=== PATIENT | female | born 1955 | race Caucasian/White ===

== ENCOUNTER 2023-02-02 17:41 | Inpatient (IN) | payer OTHER ==
--- OUTSIDE RECORDS SUMMARY | 2023-02-02 17:43 | XMS REPORT | Continuity of Care Document ---
:1955 Author Organization [facility] t Address [address] [facility] [address] [place] [address] Care Team Providers Name Role Phone Pcp, Patient Does Not Have A Primary Care Physician +[id number] Oralia Gallardo MD Attending Clinician Kavita Mckeon MD Attending Clinician MICAH PATEL Attending Clinician Unavailable Micah Patel MD Attending Clinician Doctor Unassigned, [place] Attending Clinician Unavailable ORALIA GALLARDO Admitting Clinician Unavailable MICAH PATEL Admitting Clinician Unavailable Payers Payer Name Policy Type Policy Number Effective Date Expiration Date S vy MEDICARE PART A \T\ [id number] 2022 B 00:00:00 COMMERCIAL [id number] 2022 NON-CONTRACT 00:00:00 GENERIC Problems This patient has no known problems. Allergies, Adverse Reactions, Alerts Allergy Allergy Status Severity Reaction(s) Onset Inactive Treating Comm ents Source Name Type Date Date Clinician Marcos Armas Active Itching Method i ty to 07 [facility] adverse 00:00: Hospita reaction 00 l s to drug NO KNOWN Drug Active Univers ALLERGIE Class ity of S [facility] Social History Social Habit Start Date Stop Date Quantity Comments Source Sexual orientation [facility] Gender identity [facility] History of Social 2022-09-09 2022-09-[address] function 00:00:00 00:00:00 Hospital Alcohol intake 2022-09-09 2022-09-09 Lifetime [facility] 00:00:00 00:00:00 non-drinker Hospital (finding) Tobacco use and 2022-09-05 2022-09-05 Smokeless [facility] exposure 00:00:00 00:00:00 tobacco non-user Hospital Exposure to 2022-08-12 2022-08-22 Not sure University SARS-CoV-2 (event) 00:00:00 08:43:00 [facility] [place] [facility] Sex Assigned At [birth year] [facility] 00:00:00 00:00:00 Hospital Smoking Status Start Date Stop Date Source Tobacco smoking consumption [facility] Never smoked tobacco [facility] Medications Ordered Filled Start Stop Current Ordering Indication Dosage Frequency Signature Comments Components Source Medication Medication Date Date Medication? Clinician (SIG) Name Name atorvastati Yes 10mg QD Take 1 Meth tucker n (LIPITOR) - tablet (10 st 10 mg 12:51: mg total) Hospita tablet 01 by mouth l daily. metFORMIN 2022-0 Yes 500mg [id number] Take 1 Methodi (GLUCOPHAGE 09-[id number] ) 500 mg 12:51: 3D (500 mg Hospit a tablet 01 total) by l mouth 3 (three) times a day. empaglifloz 2022-0 Yes 25mg QD Take 1 Meth tucker in -09 tablet (25 st (Jardiance) 12:51: mg total) H ospita 25 mg 01 by mouth l tablet daily. losartan 2022-0 Yes 50mg QD Take 1 Methodi (COZAAR) 50 -09 tablet (50 st MG tablet 12:51: mg total) Hos doris 01 by mouth l daily. hydroCHLORO 2023-0 Yes 25mg QD Take 1 Meth tucker thiazide -09 tablet (25 st (HYDRODIURI 12:51: mg total) H ospita L) 25 MG 01 by mouth l tablet daily. ascorbic 3-0 Yes 250mg QD Take 1 Method i acid, 6-[address] vitamin C, 12:51: (250 mg Hosp giovanna (VITAMIN C) 01 total) by l 250 MG mouth tablet daily. JARDIANCE 2022-0 Yes 25mg Take 1 Univer s 25 mg Tab 5-15 tablet by ity o f 00:00: mouth [place] 00 every Medical morning. Branch JARDIANCE 3-0 Yes 25mg Take 1 Univer s 25 mg Tab 5-15 tablet by ity o f 00:00: mouth [place] 00 every Medical morning. Branch JARDIANCE 3-0 Yes 25mg Take 1 Univer s 25 mg Tab 5-15 tablet by ity o f 00:00: mouth [place] 00 every Medical morning. Branch JARDIANCE 3-0 Yes 25mg Take 1 Univer s 25 mg Tab 5-15 tablet by ity o f 00:00: mouth [place] 00 every Medical morning. Branch JARDIANCE 3-0 Yes 25mg Take 1 Univer s 25 mg Tab 5-15 tablet by ity o f 00:00: mouth [place] 00 every Medical morning. Branch JARDIANCE 3-0 Yes 25mg Take 1 Univer s 25 mg Tab 5-15 tablet by ity o f 00:00: mouth [place] 00 every Medical morning. Branch JARDIANCE 3-0 Yes 25mg Take 1 Univer s 25 mg Tab 5-15 tablet by ity o f 00:00: mouth [place] 00 every Medical morning. Branch losartan 50 2022-0 Yes TAKE 1 Univ ers mg tablet 5-08 TABLET BY ity o f 00:00: MOUTH TIME EACH Medical DAY. Branch losartan 50 2022-0 Yes TAKE 1 Univ ers mg tablet 5-08 TABLET BY ity o f 00:00: MOUTH TIME EACH Medical DAY. Branch losartan 50 2022-0 Yes TAKE 1 Univ ers mg tablet 5-08 TABLET BY ity o f 00:00: MOUTH TIME EACH Medical DAY. Branch losartan 50 2022-0 Yes TAKE 1 Univ ers mg tablet 5-08 TABLET BY ity o f 00:00: MOUTH TIME EACH Medical DAY. Branch losartan 50 2022-0 Yes TAKE 1 Univ ers mg tablet 5-08 TABLET BY ity o f 00:00: MOUTH TIME EACH Medical DAY. Branch losartan 50 2022-0 Yes TAKE 1 Univ ers mg tablet 5-08 TABLET BY ity o f 00:00: MOUTH TIME EACH Medical DAY. Branch losartan 50 2022-0 Yes TAKE 1 Univ ers mg tablet 5-08 TABLET BY ity o f 00:00: MOUTH TIME EACH Medical DAY. Branch hydroCHLORO 2022-0 Yes TAKE 1 Univ ers thiazide 25 5-01 TABLET BY ity of mg tablet 00:00: MOUTH TIME EACH Medical DAY. Branch hydroCHLORO 2023-0 Yes TAKE 1 Univ ers thiazide 25 5-01 TABLET BY ity of mg tablet 00:00: MOUTH TIME EACH Medical DAY. Branch hydroCHLORO 2023-0 Yes TAKE 1 Univ ers thiazide 25 5-01 TABLET BY ity of mg tablet 00:00: MOUTH TIME EACH Medical DAY. Branch hydroCHLORO 2023-0 Yes TAKE 1 Univ ers thiazide 25 5-01 TABLET BY ity of mg tablet 00:00: MOUTH TIME EACH Medical DAY. Branch hydroCHLORO 2023-0 Yes TAKE 1 Univ ers thiazide 25 5-01 TABLET BY ity of mg tablet 00:00: MOUTH TIME EACH Medical DAY. Branch hydroCHLORO 2023-0 Yes TAKE 1 Univ ers thiazide 25 5-01 TABLET BY ity of mg tablet 00:00: MOUTH TIME EACH Medical DAY. Branch hydroCHLORO 2023-0 Yes TAKE 1 Univ ers thiazide 25 5-01 TABLET BY ity of mg tablet 00:00: MOUTH TIME EACH Medical DAY. Branch metformin 2023-0 Yes TAKE 2 Univer s ER 500 mg 2-20 TABLETS ity of 24 hr 00:00: TWICE A [place] tablet 00 DAY DO NOT Medical CRUSH, Branch CHEW, OR SPLIT. metformin 2023-0 Yes TAKE 2 Univer s ER 500 mg 2-20 TABLETS ity of 24 hr 00:00: TWICE A [place] tablet 00 DAY DO NOT Medical CRUSH, Branch CHEW, OR SPLIT. metformin 2023-0 Yes TAKE 2 Univer s ER 500 mg 2-20 TABLETS ity of 24 hr 00:00: TWICE A [place] tablet 00 DAY DO NOT Medical CRUSH, Branch CHEW, OR SPLIT. metformin 2023-0 Yes TAKE 2 Univer s ER 500 mg 2-20 TABLETS ity of 24 hr 00:00: TWICE A [place] tablet 00 DAY DO NOT Medical CRUSH, Branch CHEW, OR SPLIT. metformin 2023-0 Yes TAKE 2 Univer s ER 500 mg 2-20 TABLETS ity of 24 hr 00:00: TWICE A [place] tablet 00 DAY DO NOT Medical CRUSH, Branch CHEW, OR SPLIT. metformin 2023-0 Yes TAKE 2 Univer s ER 500 mg 2-20 TABLETS ity of 24 hr 00:00: TWICE A [place] tablet 00 DAY DO NOT Medical CRUSH, Branch CHEW, OR SPLIT. metformin 2022-0 Yes TAKE 2 Univer s ER 500 mg 2-20 TABLETS ity of 24 hr 00:00: TWICE A [place] tablet 00 DAY DO NOT Medical CRUSH, Branch CHEW, OR SPLIT. atorvastati 2021-0 Yes 10mg Take 1 Univ ers n 10 mg 9-06 tablet by ity of tablet 00:00: mouth. Medical Branch atorvastati 2021-0 Yes 10mg Take 1 Univ ers n 10 mg 9-06 tablet by ity of tablet 00:00: mouth. [facility] Branch atorvastati 2021-0 Yes 10mg Take 1 Univ ers n 10 mg 9-06 tablet by ity of tablet 00:00: mouth. [facility] Branch atorvastati 2021-0 Yes 10mg Take 1 Univ ers n 10 mg 9-06 tablet by ity of tablet 00:00: mouth. [facility] atorvastati 2021-0 Yes 10mg Take 1 Univ ers n 10 mg 9-06 tablet by ity of tablet 00:00: mouth. [facility] Branch atorvastati 2021-0 Yes 10mg Take 1 Univ ers n 10 mg 9-06 tablet by ity of tablet 00:00: mouth. [facility] Branch atorvastati 2021-0 Yes 10mg Take 1 Univ ers n 10 mg 9-06 tablet by ity of tablet 00:00: mouth. [address] Vital Signs Vital Name Observation Time Observation Value Comments Source Systolic blood 2022-08-22 14:05:00 136 mm[Hg] Univer sity of pressure [facility] Diastolic blood 2022-08-22 14:05:00 89 mm[Hg] Unive rsity of pressure [facility] Heart rate 2022-08-22 14:05:00 102 /min [facility] Body height 2022-08-22 14:05:00 165.1 cm [facility] Body weight 2022-08-22 14:05:00 92.625 kg [facility] BMI 2022-08-22 14:05:00 33.98 kg/m2 [facility] Oxygen saturation in 2022-08-22 14:05:00 99 /min University Arterial blood by [facility] Pulse oximetry Branch Systolic blood 2022-09-05 17:08:00 101 mm[Hg] [facility] pressure Diastolic blood 2022-09-05 17:08:00 58 mm[Hg] [facility] pressure Heart rate 2022-09-05 17:08:00 92 /min [facility] Body temperature 2022-09-05 17:08:00 36.89 [facility] Respiratory rate 2022-09-05 17:08:00 18 /min [facility] Oxygen saturation in 2022-09-05 17:08:00 98 /min [facility] Arterial blood by Pulse oximetry Body height 2022-09-05 11:43:00 165.1 cm [facility] Body weight 2022-09-05 11:43:00 92.534 kg [facility] BMI 2022-09-05 11:43:00 33.95 kg/m2 [facility] Procedures Procedure Date / Time Performing Clinician Source Performed POC GLUCOSE 2022-09-05 16:04:00 Oralia Gallardo spital IA AN ELECTIVE 2022-09-05 12:42:00 Ruddy Leavitt ENDOTRACHEAL AIRWAY VITRECTOMY WITH ENDOLASER 2022-09-05 12:35:00 Oralia Gallardo [facility] PHOTOCOAGULATION OF RETINA AND EPIMACULAR MEMBRANE PEELING POC GLUCOSE 2022-09-05 11:37:00 Oralia Gallardo spital EXTERNAL PROVIDER - ADC 2022-08-20 05:01:00 Doctor Unassigned, [facility] CARDIOLOGY [place] [facility] PHYSICIAN ORDERS 2022-08-16 05:01:00 Doctor Unassigned, [facility] [place] [facility] Encounters Start End Encounter Admission Attending Care Care Encounter Source Date/Time Date/Time Type Type Clinicians Facility Department ID 2022-09-05 2022-09-05 [facility] Oralia Gallardo 1Deanne2.840.1 [id number] Be 05:56:00 12:51:00 [id number] 3.430.2.7 Hospit a .3.009614 l .8 2022-09-05 2022-09-05 Anesthesia Luehr, 1.2.840.1 [id number] Methodi 07:35:00 11:08:00 Event Kavita Bowser 80838.1.1 891 s t 3.430.2.7 Hospit a .3.656964 l .8 2022-09-05 2022-09-05 Surgery Oralia Gallardo 1.2.840.1 [id number] Methodi 07:30:00 09:20:[address] 3.430.2.7 Hospit a .3.723276 l .8 2022-09-05 2022-09-05 Travel 1.2.840.1 [id number] [id number] Methodi 00:00:00 00:00:[address] 3.430.2.7 0.2.7.3.698 Ho spita .3.673523 084.8 l .8 2022-09-05 2022-09-05 Outpatient ORALIA GALLARDO [facility] [id number] [place] 00:00:00 00:00:[address] 2022-09-03 2022-09-03 [facility] [id number] Univers 13:19:04 23:59:00 MICAH [place] [facility] 2022-09-03 2022-09-03 [facility]phone [facility] [id number] [facility] 00:00:00 00:00:00 Micah HSARP 350.1.13.10 [place] [id number] Ok dical NAL 9 [facility] 2022-08-28 2022-08-28 Telephone [facility] [id number] Univers 00:00:00 00:00:00 Qiathomas [place] 350.1.13.10 [place]y [place] [id number] Ok dical NAL 9 [facility] 2022-08-22 2022-08-22 Office Jorge [facility] 1.2.840.114 [id number] Univers 09:00:00 09:29:20 Visit Micah SHARP 350.1.13.10 [place] [id number] Ok dical NAL 059 [facility] 2022-08-22 2022-08-22 Outpatient [facility] [id number] Univers 09:00:00 09:29:20 MICAH housey o f [facility] 2022-08-20 2022-08-20 Orders Doctor JOYCE 1.2.840.114 [id number] Univers 00:00:00 00:00:00 Only Unassigned, BREE 350.1.13.10 ity of [place] [facility] 4.2.7.2.686 Ernesto as [phone] [address] 2022-08-16 2022-08-16 Orders Doctor JOYCE 1.2.840.114 [id number] Univers 00:00:00 00:00:00 Only Unassigned, BREE 350.1.13.10 ity of [place] [facility] 4.2.7.2.686 Ernesto as [phone] [address] Results Test Description Test Time Test Comments Results Result Comments Source POC glucose 2022-09-05 16:05:00 Test Item Value Reference Range Interpretation Comme nts POC glucose (test code = 159 mg/dL 65-99 H Ope rator Name: Fransisco DimasCristianoever [id number]) ID: [id number] hartable: [facility] 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
[2023-02-02] MEDS ORDERED: NA CHLORIDE 0.9% 1,000 ML ONE ×2 (18:49→19:26)
[2023-02-02] MEDS ORDERED: ACETAMINOPHEN 325 MG TABLET ONE ×2 (18:49→19:26)
[2023-02-02 19:17] LABS: Absolute Lymphocytes (CBC) 1.1 K/uL (0.7-4.9); Hematocrit 34.4 % (36.0-45.0); Lymphocytes % 5.8 % (15.3-44.8); MCV 85.5 fL (80-100); MPV 7.2 fL (7.6-11.3); Platelets 317 thou/uL (152-406); RBC Red Blood Cell Count 4.02 M/uL (3.86-4.86)
[2023-02-02] MEDS ORDERED: NA CHLORIDE 0.9% 100 ML ONE (19:26)
[2023-02-02] MEDS ORDERED: PIPERACIL/TAZO 3.375 GM VIAL IV ONE (19:27)
[2023-02-02 19:32] LABS: Protime INR 0.95
[2023-02-02 19:41] LABS: Albumin 3.2 g/dL (3.4-5.0); Bilirubin Total 0.3 mg/dL (0.2-1.0); Protein, Total 7.2 g/dL (6.4-8.2)
[2023-02-02 19:43] LABS: Potassium 3.7 mEq/L (3.5-5.1)
--- NOTE | 2023-02-02 20:00 | RAD REPORT ---
[facility] DES[facility] 7:14 pm CLINICAL HISTORY: COUGH COMPARISON: CHEST SINGLE VIEW dated 06/22/2014 TECHNIQUE: Portable AP view of the chest. FINDINGS: The lungs are clear. No pneumothorax or effusion. The cardiomediastinal contours are unre markable. IMPRESSION: No acute cardiopulmonary process.
[2023-02-02 20:32] LABS: Blood Morphology Comment NOT SEEN (NOT SEEN); Platelet Estimate ADEQ
[2023-02-02] MEDS ORDERED: IBUPROFEN 400 MG TAB ONE (20:59)
--- NOTE | 2023-02-02 21:37 | RAD REPORT ---
EXAM DESCRIPTION: CT - Chest Abd Pelvis Wo Con - 02/02/2023 8:57 pm CLINICAL HISTORY: sepsis, hepatitis COMPARISON: Chest Single View dated 02/02/2023 TECHNIQUE: Thin axial CT images of the chest, abdomen, and pelvis, performed without IV contrast. Sa gittal and coronal reformats were generated and reviewed. All CT scans are performed using dose optimization technique as appropriate and may include automated exposure control or mA/KV adjustment according to patient size. FINDINGS: Irregular mass in the medial aspect of the upper segment right lower lobe, measuring 3.5 c m. Small mediastinal lymph nodes, largest measuring 1.3 cm in short axis in the subcarinal region.No pleural or pericardial effusion.No intrathoracic adenopathy. The liver, spleen, pancreas, adrenal glands and kidneys are within normal limits. Status post cholec ystectomy Left band in place. No bowel obstruction, free air, free fluid or abscess. Normal appendix. No patho logic lymphadenopathy in the abdomen or pelvis. Linear area of soft tissue thickening with some calci fications overlying the left gluteal region. Similar changes on the right, without corresponding calc ifications. No worrisome osseous finding. IMPRESSION: Irregular mass in the upper segment right lower lobe up to 3.5 cm in size concerning for primary lung malignancy. Small indeterminate mediastinal lymph nodes largest in the subcarinal region measuring 1.3 cm. Linear areas of soft tissue thickening overlying the gluteal regions, with calcifications on the left . These are nonspecific but could relate to incompletely resolved seromas or hemangiomas.
[2023-02-02] MEDS ORDERED: ALBUTEROL 2.5 MG/3 ML NEB SOL NEB PRN (21:49)
[2023-02-02] MEDS ORDERED: ACETAMINOPHEN 500 MG TAB PO PRN (21:49)
[2023-02-02] MEDS ORDERED: MORPHINE 2 MG/ML SYR IV PRN (21:49)
[2023-02-02] MEDS ORDERED: ONDANSETRON 4 MG/2 ML VIAL IV PRN (21:49)
--- NOTE | 2023-02-02 21:53 | P.HP ---
Certification for Inpatient Patient admitted to: Inpatient With expected LOS: >2 Midnights Patient will require the following post-hospital care: None Practitioner: I am a practitioner with admitting privileges, knowledge of patient current condition, hospital course, and medical plan of care. Services: Services provided to patient in accordance with Admission requirements found in Title 42 Section 412.3 of the Code of Federal Regulations Patient History Date of Service: 02/03/23 Reason for admission: Fever / Cough History of Present Illness: 67 yrs old Female with past medical history of hypertension, diabetes, hyperlipidemia presents to ER with complaints of Body aches, Fever, Cough. Which has been going on for the last 3 4 days and has been progressively worsening and was brought to ER. Patient had fever of 101+ associated with chills and cough Cough is productive with mucoid expectoration. Fevers intermittent. Fever got worsened today not better with OTC medications. Patient also complains of some sore throat. No shortness of breath or chest pain. Has generalized body pain and myalgia. Has a sick contact with a granddaughter who had flu last week. No nausea vomiting or diarrhea. Patient was assessed in the ER and still found to have fever and cough and possible pneumonia/lung mass and was started on sepsis protocol and was admitted for further management. Allergies codeine Allergy (Verified 06/22/14 18:17) Itching No Known Drug Allergies Allergy (Verified 02/02/23 23:51) Unknown Home medications list reviewed: Yes Home Medications: Atorvastatin Calcium [Lipitor] 10 mg PO BEDTIME 02/03/23 Empagliflozin [Jardiance] 25 mg PO DAILY 02/03/23 Losartan Potassium 50 mg PO DAILY 02/03/23 Metformin HCl 500 mg PO DAILY 02/03/23 Naproxen Sodium [Naprelan] 500 mg PO DAILY 02/03/23 - Past Medical/Surgical History Diabetic: No Past Medical History: Reviewed- Non-Contributory -: hypertension Past Surgical History: Reviewed- Non-Contributory -: tubal ligation -: hysterectomy -: tummy tuck -: shoulder surgery -: lap band -: knee surgery -: eye surgery -: thigh lift surgery - Family History Family History: Reviewed- Non-Contributory - Family History Father -: Diabetes Brother -: Cancer - Social History Smoking Status: Never smoker Alcohol use: Yes CD- Drugs: No Caffeine use: Yes Review of Systems 10-point ROS is otherwise unremarkable Physical Examination - Vital Signs Temperature: 99.5 F Blood Pressure: 114/78 Pulse: 102 Respirations: 18 Pulse Ox (%): 97 - Physical Exam General: Alert, In no apparent distress, Oriented x3, Mild distress HEENT: Atraumatic, Normocephalic Neck: Supple, 2+ carotid pulse no bruit, No Thyromegaly Respiratory: Normal air movement, Crackles/rales, Rhonchi/gurgles Cardiovascular: Normal pulses, Regular rate/rhythm, Normal S1 S2 Capillary refill: <2 Seconds Gastrointestinal: Soft and benign, Non-distended, W/out hepatosplenomegaly Musculoskeletal: No clubbing, No swelling Integumentary: No rashes, No breakdown Neurological: Normal strength at 5/5 x4 extr, Cranial nerves 3-12 intact, Normal reflexes 2+, Normal affect Lymphatics: No axilla or inguinal lymphadenopathy - Studies Laboratory Data (last 24 hrs) 02/02/23 02/02/23 02/02/23 18:55 18:55 18:55 WBC 18.80 H Hgb 11.5 L Hct 34.4 L Plt Count 317 PT 10.5 INR 0.95 APTT 30.8 Sodium 131 L Potassium 3.7 BUN 32 H Creatinine 1.71 H Glucose 291 H Total Bilirubin 0.3 AST 101 H ALT 105 H Alkaline Phosphatase 223 H Microbiology Data (last 24 hrs): 02/02/23 19:20 Nasopharnyx Influenza Type A Antigen Screen - Final 02/02/23 19:20 Nasopharnyx Influenza Type B Antigen Screen - Final 02/02/23 19:20 Throat Group A Streptococcus Rapid Screen - Final Imagings Data: EXAM DESCRIPTION: CT - Chest Abd Pelvis Wo Con - 02/02/2023 8:57 pm CLINICAL HISTORY: sepsis, hepatitis COMPARISON: Chest Single View dated 02/02/2023 TECHNIQUE: Thin axial CT images of the chest, abdomen, and pelvis, performed without IV contrast. Sagittal and coronal reformats were generated and reviewed. All CT scans are performed using dose optimization technique as appropriate and may include automated exposure control or mA/KV adjustment according to patient size. FINDINGS: Irregular mass in the medial aspect of the upper segment right lower lobe, measuring 3.5 cm. Small mediastinal lymph nodes, largest measuring 1.3 cm in short axis in the subcarinal region.No pleural or pericardial effusion.No intrathoracic adenopathy. The liver, spleen, pancreas, adrenal glands and kidneys are within normal limits. Status post cholecystectomy Left band in place. No bowel obstruction, free air, free fluid or abscess. Normal appendix. No pathologic lymphadenopathy in the abdomen or pelvis. Linear area of soft tissue thickening with some calcifications overlying the left gluteal region. Similar changes on the right, without corresponding calcifications. No worrisome osseous finding. IMPRESSION: Irregular mass in the upper segment right lower lobe up to 3.5 cm in size concerning for primary lung malignancy. Small indeterminate mediastinal lymph nodes largest in the subcarinal region measuring 1.3 cm. Linear areas of soft tissue thickening overlying the gluteal regions, with calcifications on the left. These are nonspecific but could relate to incompletely resolved seromas or hemangiomas Assessment and Plan - Problems (Diagnosis) (1) Sepsis Current Visit: Yes Status: Acute Plan: Sepsis with unknown source Possibly due to pneumonia /URI Tylenol as needed for fever IV antibiotics started We will obtain cultures IV hydration Elevated CRP found CT chest abdomen pelvis noted Flu test negative Monitor closely on telemetry (2) Pneumonia Current Visit: Yes Status: Acute Plan: Possibly pneumonia right upper lobe Irregular mass noted CT findings noted We will consult pulmonology Continue antibiotics with Zosyn and Zithromax to cover for atypical Will obtain sputum culture A repeat x-ray chest in a.m. (3) Lung mass Current Visit: Yes Status: Acute Plan: CT findings noted Lung mass with mediastinal lymphadenopathy noted No previous history of lung mass Non-smoker No history of weight loss, night sweats Pulmonology consulted Patient may need a bronchoscopy for possible biopsy (4) Elevated LFTs Current Visit: Yes Status: Acute Plan: LFTs trended Ultrasound findings noted with no acute changes Hepatitis panel pending Monitor LFTs in a.m. (5) Diabetes Current Visit: Yes Status: Chronic Plan: Insulin sliding scale Accu-Chek before every meal and at bedtime May need an A1c in a.m. (6) Hypertension Current Visit: Yes Status: Chronic Plan: Continue home medications losartan Antihypertensives titrated (7) Hyperlipidemia Current Visit: Yes Status: Chronic Plan: Continue statin Discharge Plan: Home Plan to discharge in: Greater than 2 days - Advance Directives Does patient have a Living Will: No Does patient have a Durable POA for Healthcare: Yes - Code Status/Comfort Care Code Status: Full Code Physician Review: Patient Assessed, Agree with Above Assessment and Plan Time Spent Managing Pts Care (In Minutes): 48
[2023-02-02] MEDS: NA CHLORIDE 0.9% 1,000 ML IV SCH (22:00)
--- NOTE | 2023-02-02 22:07 | EDPHYS ---
Physician Documentation [facility] Name: Augusta Thrasher Age: 67 yrs Sex: Female : 1955 Arrival Date: 02/02/2023 Time: 17:41 Bed 8 Private MD: ED Physician Jose Luis Hernandez HPI: 02/02 18:30 This 67 yrs old Female presents to ER via EMS with complaints of Body aches, Fever, rn Cough. 18:30 The patient reports fever, that was measured at 101 degrees Fahrenheit. Onset: The rn symptoms/episode began/occurred today. Modifying factors: The patient has had contact with sick. Associated signs and symptoms: Pertinent positives: chills, cough, sore throat. 18:30 Severity of symptoms: At their worst the symptoms were mild in the emergency department rn the symptoms are unchanged. The patient has not experienced similar symptoms in the past. Patient reports fever, chills, sore throat, cough, myalgias that all started earlier today. States granddaughter had flu last week. Denies shortness of breath. Denies abdominal pain. Denies vomiting or diarrhea.. Historical: - Allergies: 17:56 Codeine; cm10 - PMHx: 17:56 Hypertensive disorder; Diabetes mellitus; cm10 - Immunization history:: Adult Immunizations unknown. - Social history:: Smoking status: Patient denies any tobacco usage or history of. - Family history:: not pertinent. - Hospitalizations: : No recent hospitalization is reported. ROS: 18:30 Constitutional: Positive for fever and chills Cardiovascular: Negative for chest pain, rn palpitations, and edema, Respiratory: Positive for cough, negative for shortness of breath Abdomen/GI: Negative for abdominal pain, nausea, vomiting, diarrhea, and constipation, MS/Extremity: Negative for injury and deformity, Skin: Negative for injury, rash, and discoloration, Neuro: Positive for generalized weakness Exam: 18:30 Constitutional: This is a well developed, well nourished patient who is awake, alert, rn and in no acute distress. Head/Face: Normocephalic, atraumatic. ENT: Dry mucous membranes, no stridor, no exudate or swelling Neck: Trachea midline, no thyromegaly or masses palpated, and no cervical lymphadenopathy. Supple, full range of motion without nuchal rigidity, or vertebral point tenderness. No Meningismus. Cardiovascular: Tachycardic, regular. No pulse deficits. Respiratory: No increased work of breathing, no retractions or nasal flaring. Abdomen/GI: Soft, non-tender Skin: Warm, dry MS/ Extremity: Pulses equal, no cyanosis. Neuro: Awake and alert, GCS 15 Vital Signs: 17:55 Weight 92.99 kg; Height 5 ft. 4 in. ; cm10 17:58 BP 114 / 77; Pulse 122; Resp 18; Temp 99.5(O); Pulse Ox 97% on R/A; cm10 21:24 BP 96 / 59; Pulse 88; Pulse Ox 98% on R/A; km8 22:00 BP 96 / 57; Pulse 88; Resp 16; Pulse Ox 99% on R/A; km8 17:55 Body Mass Index 35.19 (92.99 kg, 162.56 cm) cm10 [place] Coma Score: 22:30 Eye Response: spontaneous(4). Motor Response: obeys commands(6). Verbal Response: la4 oriented(5). Total: 15. MDM: 18:19 Patient medically screened. rn 20:39 Differential diagnosis: viral Infection, bacterial infection, URI, bronchitis, sp4 pneumonia UTI, gastroenteritis, meningitis. Data reviewed: vital signs, nurses notes, EMS record, diagnostic data from outside facility, old medical records, lab test result(s), EKG, radiologic studies, CT scan, plain films, ultrasound. 20:41 Consideration of Admission/Observation Patient was admitted/placed on observation. sp4 Escalation of care including admission/observation considered. Management of patient was discussed with the following: Hospitalist: Dr. Ramsey. ED course: This is a very pleasant 67-year-old female with history diabetes hypertension who belongs to Dr. Barboza, Dr. Cisneros, and [facility] Roseann who presents with generalized weakness fatigue fever chills body aches. Patient states that 3 weeks ago she has developed persistent nonproductive cough and draining sinuses. Cough has intensified and then today patient began feeling unwell with generalized fatigue weakness malaise chills fever body aches and finally this precipitated with overall weakness where EMS had to be called to bring patients to the emergency department. Patient states she has a history of foodborne hepatitis several years ago. Patient denied travel outside of the country. She denied sick contacts. . 21:43 ED course: CT - EXAM DESCRIPTION: CT - Chest Abd Pelvis Wo Con - 02/02/2023 8:57 pm sp4 CLINICAL HISTORY: sepsis, hepatitis COMPARISON: Chest Single View dated 02/02/2023 TECHNIQUE: Thin axial CT images of the chest, abdomen, and pelvis, performed without IV contrast. Sagittal and coronal reformats were generated and reviewed. All CT scans are performed using dose optimization technique as appropriate and may include automated exposure control or mA/KV adjustment according to patient size. FINDINGS: Irregular mass in the medial aspect of the upper segment right lower lobe, measuring 3.5 cm. Small mediastinal lymph nodes, largest measuring 1.3 cm in short axis in the subcarinal region.No pleural or pericardial effusion.No intrathoracic adenopathy. The liver, spleen, pancreas, adrenal glands and kidneys are within normal limits. Status post cholecystectomy Left band in place. No bowel obstruction, free air, free fluid or abscess. Normal appendix. No pathologic lymphadenopathy in the abdomen or pelvis. Linear area of soft tissue thickening with some calcifications overlying the left gluteal region. Similar changes on the right, without corresponding calcifications. No worrisome osseous finding. IMPRESSION: Irregular mass in the upper segment right lower lobe up to 3.5 cm in size concerning for primary lung malignancy. Small indeterminate mediastinal lymph nodes largest in the subcarinal region measuring 1.3 cm. Linear areas of soft tissue thickening overlying the gluteal regions, with calcifications on the left. These are nonspecific but could relate to incompletely resolved seromas or hemangiomas. . 22:07 ED course: Patient should be admitted for bacterial type sepsis with leukocytosis with sp4 neutrophilic predominance, also there is incidental finding of right lung mass 3.[address] no sign of metastatic disease, patient was advised to schedule appointment with Dr. Ramirez as soon as possible after she is released from the hospital. CT report was given to the patient and her family and everything was explained in detail regarding incidental finding of the right lung mass. . 02/02 18:27 Order name: Flu; Complete Time: 20:26 rn 02/02 18:27 Order name: SARS RAPID rn 02/02 18: Order name: CBC with Diff; Complete Time: 20:41 rn 02/02 18: Order name: Blood Culture Adult (2); Complete Time: 20:03 rn 02/02 18:27 Order name: Lactate w/ 2H reflex if indic.; Complete Time: 20:25 rn 02/02 18:27 Order name: CMP; Complete Time: 20:25 02/02 18:27 Order name: Protime (+inr); Complete Time: 20:25 02/02 18:27 Order name: Ptt, Activated; Complete Time: 20:25 02/02 18:30 Order name: Strep 02/02 19:20 Order name: Glucose, Ancillary Testing; Complete Time: 20:25 EDVT 02/02 20:27 Order name: Throat Culture EDVT 02/02 20:32 Order name: Manual Differential; Complete Time: 20:41 EDVT 02/02 20:40 Order name: Hepatitis Panel; Complete Time: 20:03 [facility] 02/02 20:41 Order name: CRP; Complete Time: 21:45 [facility] 02/02 20:41 Order name: Procalcitonin; Complete Time: 20:03 [facility] 02/02 21:54 Order name: CBC with Automated Diff [facility] 02/02 21:54 Order name: CBC with Automated Diff; Complete Time: 20:03 EDVT 02/02 21:54 Order name: Comprehensive Metabolic Panel [facility] 02/02 21:54 Order name: Comprehensive Metabolic Panel; Complete Time: 20:03 [facility] 02/02 22:41 Order name: Lactate Sepsis 2 HR Follow-up; Complete Time: 20:03 [facility] 02/02 18:27 Order name: XRAY Chest (1 view); Complete Time: 20:25 02/02 20:41 Order name: CT Chest Abdomen Pelvis W/O Contrast; Complete Time: 21:41 [facility] 02/02 20:58 Order name: Liver Only; Complete Time: 20:03 [facility] 02/02 18:27 Order name: EKG; Complete Time: 18:28 02/02 18:27 Order name: IV Start; Complete Time: 19:03 02/02 18:27 Order name: Accucheck; Complete Time: 19:09 02/02 18:27 Order name: Cardiac monitoring; Complete Time: 19:02 02/02 18:27 Order name: EKG - Nurse/Tech; Complete Time: 18:47 02/02 18:27 Order name: IV Saline Lock - Large Bore; Complete Time: 19:02 rn 02/02 18:27 Order name: Labs collected and sent; Complete Time: : rn 02/02 18:27 Order name: O2 Per Protocol; Complete Time: : rn 02/02 18:27 Order name: O2 Sat Monitoring; Complete Time: : rn 02/02 18:27 Order name: Vital Signs; Complete Time: 19: rn Administered Medications: 19:02 Drug: Acetaminophen PO 650 mg PO once Route: PO; mb9 21:34 Follow up: Response: No adverse reaction; Temperature is decreased la4 19:02 Drug: NS 0.9% IV 1000 ml IV at 1000 ml once Route: IV; Rate: 1000 ml; Site: right mb9 antecubital; 21:00 Follow up: IV Status: Completed infusion; IV Intake: 1000ml la4 19:11 CANCELLED (Duplicate Order): piperacillin-tazobactam3.375 grams IVPB once over 60 mins; rn (mix in NS 100 mL) 20:41 Drug: Piperacillin-Tazobactam IVPB 3.375 grams IVPB once over 60 mins; (mix in NS 100 la4 mL) Route: IVPB; Infused Over: 60 mins; Site: right antecubital; 21:15 Follow up: IV Status: Completed infusion; IV Intake: 100ml la4 21:32 Drug: vancoMYCIN IVPB 2 grams IVPB at calculated rate once Route: IVPB; Rate: la4 calculated rate; Site: right antecubital; 21:32 Drug: NS 0.9% IV 1000 ml IV at 125 ml/hr continuous Route: IV; Rate: 125 ml/hr; Site: la4 right antecubital; 21:33 Drug: Ibuprofen PO 800 mg PO once Route: PO; la4 22:34 Drug: Albuterol Inhalation 2.5 mg Inhalation once Route: Inhalation; km8 22:55 Follow up: Response: No adverse reaction la4 22:34 Drug: Ipratropium Inhalation Aerosol 0.5 mg Inhalation once Route: Inhalation; km8 22:55 Follow up: Response: No adverse reaction la4 22:35 Drug: Dextromethorphan-Guaifenesin PO Liquid 10 mg-100 mg/5 mL 10 ml PO once Route: PO; km8 22:53 Follow up: Response: No adverse reaction la4 Disposition Summary: 02/02/23 22:07 Hospitalization Ordered Notes: Hospitalization Status: Inpatient Admission sp4 Provider: Tor Ramsey sp4 Location: Telemetry/MedSurg (Inpatient) sp4 Condition: Stable sp4 Problem: new sp4 Symptoms: have improved sp4 Bed/Room Type: Standard sp4 Room Assignment: 223(02/02/23 22:15) mw Diagnosis - Severe sepsis without septic shock sp4 - Acute bacterial sepsis, leukocytosis, right lower lobe lung mass, incidental sp4 finding of the lung mass, elevated liver enzymes, acute hepatitis Forms: - Medication Reconciliation Form sp4 - SBAR form sp4 - Leadership Thank You Letter sp4 Signatures: Dispatcher [employer] EDMS Zoie Hannon RN RN mw Ernie Sanchez MD MD rn Breneman, Cinthia Gillespie, RN RN mb9 Jose Luis Hernandez MD MD sp4 Norma Gudino RN RN cm10 Wendy Bowens, RN RN km8 Christopher Justice RN RN la4 Corrections: (The following items were deleted from the chart) 19:11 19:02 Piperacillin-Tazobactam IVPB 3.375 grams IVPB once over 60 mins; (mix in NS 100 rn mL) ordered. rn 20:58 20:40 Abdomen Limited+US.RAD.BRZ ordered. EDVT EDMS 22:15 22:07 sp4 mw
--- NOTE | 2023-02-02 22:07 | ER ---
Nurse's Notes [facility] Name: Augusta Thrasher Age: 67 yrs Sex: Female : 1955 Arrival Date: 02/02/2023 Time: 17:41 Bed 8 Private MD: Diagnosis: Severe sepsis without septic shock;Acute bacterial sepsis, leukocytosis, right lower lobe lung mass, incidental finding of the lung mass, elevated liver enzymes, acute hepatitis Presentation: 02/02 17:45 Chief complaint: EMS states: pt has been complaining of fever, cough, body aches X3 cm10 weeks that has gotten worse today. Onset of symptoms is unknown. 17:45 Method Of Arrival: EMS: [facility] cm10 17:46 Care prior to arrival: IV initiated. 20 GA, in the right antecubital area. cm10 17:55 Coronavirus screen: Vaccine status: Patient reports being unvaccinated. Ebola Screen: cm10 Patient denies travel to an Ebola-affected area in the 21 days before illness onset. No symptoms or risks identified at this time. Initial Sepsis Screen: Does the patient meet any 2 criteria? No. Patient's initial sepsis screen is negative. Does the patient have a suspected source of infection? No. Patient's initial sepsis screen is negative. Risk Assessment: Do you want to hurt yourself or someone else? Patient reports no desire to harm self or others. 17:55 Acuity: VINI 3 cm10 Historical: - Allergies: 17:56 Codeine; cm10 - PMHx: 17:56 Hypertensive disorder; Diabetes mellitus; cm10 - Immunization history:: Adult Immunizations unknown. - Social history:: Smoking status: Patient denies any tobacco usage or history of. - Family history:: not pertinent. - Hospitalizations: : No recent hospitalization is reported. Screenin:30 [facility] ED Fall Risk Assessment (Adult) History of falling in the last 3 months, la4 including since admission No falls in past 3 months (0 pts) Confusion or Disorientation No (0 pts) Intoxicated or Sedated No (0 pts) Impaired Gait No (0 pts) Mobility Assist Device Used No (0 pt) Altered Elimination No (0 pt) Score/Fall Risk Level 0 - 2 = Low Risk. Abuse screen: Denies threats or abuse. Denies injuries from another. Nutritional screening: No deficits noted. Tuberculosis screening: No symptoms or risk factors identified. Assessment: 20:34 General: Appears in no apparent distress. Behavior is calm, cooperative, appropriate la4 for age, Pt refusing covid swab. Pain: Denies pain. Neuro: No deficits noted. [place]cher Agitation-Sedation Scale (RASS): 0 - Alert and Calm Level of Consciousness is awake, alert, obeys commands, Oriented to person, place, time, situation, Appropriate for age Comfort Advisor are equal bilaterally Moves all extremities. Cardiovascular: No deficits noted. Heart tones S1 S2 Capillary refill < 3 seconds is brisk. Respiratory: No deficits noted. Airway is patent Breath sounds are clear bilaterally. 22:32 General: Attempted to call reoort twice with no answer to nurses phone. Aill call again la4 in 15 minutes. Charge nurse notified. Vital Signs: 17:55 Weight 92.99 kg; Height 5 ft. 4 in. ; cm10 17:58 BP 114 / 77; Pulse 122; Resp 18; Temp 99.5(O); Pulse Ox 97% on R/A; cm10 21:24 BP 96 / 59; Pulse 88; Pulse Ox 98% on R/A; km8 22:00 BP 96 / 57; Pulse 88; Resp 16; Pulse Ox 99% on R/A; km8 17:55 Body Mass Index 35.19 (92.99 kg, 162.56 cm) cm10 [place] Coma Score: 22:30 Eye Response: spontaneous(4). Motor Response: obeys commands(6). Verbal Response: la4 oriented(5). Total: 15. ED Course: 17:44 Patient arrived in ED. cm10 17:56 Triage completed. cm10 17:57 Arm band placed on right wrist. Patient placed in waiting room. cm10 18:19 Ernie Sanchez MD is Attending Physician. rn 18:46 EKG done, by ED staff, reviewed by Ernie Sanchez MD. em1 19:03 CMP Sent. mb9 19:03 Protime (+inr) Sent. mb9 19:03 Ptt, Activated Sent. mb9 19:03 Maintain EMS IV. Dressing intact. Good blood return noted. Site clean \T\ dry. Gauge \T\ mb 9 site: 20 g right AC. 19:05 Christopher Justice, RN is Primary Nurse. la4 19:16 XRAY Chest (1 view) In Process Unspecified. EDMS 19:35 Strep Sent. la4 20:25 Attending Physician role handed off by Ernie Sanchez MD sp4 20:25 Jose Luis Hernandez MD is Attending Physician. sp4 20:57 CT Chest Abdomen Pelvis W/O Contrast Sent. la4 20:59 CT Chest Abdomen Pelvis W/O Contrast In Process Unspecified. EDMS 21:14 Liver Only In Process Unspecified. EDMS 22:05 Tor Ramsey MD is Hospitalizing Provider. sp4 22:31 Patient has correct armband on for positive identification. Bed in low position. Call la4 light in reach. Side rails up X2. Provided Education on: plan of care. 22:31 No provider procedures requiring assistance completed. la4 22:31 Patient admitted, IV remains in place. la4 Administered Medications: 19:02 Drug: Acetaminophen PO 650 mg PO once Route: PO; mb9 21:34 Follow up: Response: No adverse reaction; Temperature is decreased la4 19:02 Drug: NS 0.9% IV 1000 ml IV at 1000 ml once Route: IV; Rate: 1000 ml; Site: right mb9 antecubital; 21:00 Follow up: IV Status: Completed infusion; IV Intake: 1000ml la4 19:11 CANCELLED (Duplicate Order): piperacillin-tazobactam3.375 grams IVPB once over 60 mins; rn (mix in NS 100 mL) 20:41 Drug: Piperacillin-Tazobactam IVPB 3.375 grams IVPB once over 60 mins; (mix in NS 100 la4 mL) Route: IVPB; Infused Over: 60 mins; Site: right antecubital; 21:15 Follow up: IV Status: Completed infusion; IV Intake: 100ml la4 21:32 Drug: vancoMYCIN IVPB 2 grams IVPB at calculated rate once Route: IVPB; Rate: la4 calculated rate; Site: right antecubital; 21:32 Drug: NS 0.9% IV 1000 ml IV at 125 ml/hr continuous Route: IV; Rate: 125 ml/hr; Site: la4 right antecubital; 21:33 Drug: Ibuprofen PO 800 mg PO once Route: PO; la4 22:34 Drug: Albuterol Inhalation 2.5 mg Inhalation once Route: Inhalation; 8 22:55 Follow up: Response: No adverse reaction la4 22:34 Drug: Ipratropium Inhalation Aerosol 0.5 mg Inhalation once Route: Inhalation; km8 22:55 Follow up: Response: No adverse reaction la4 22:35 Drug: Dextromethorphan-Guaifenesin PO Liquid 10 mg-100 mg/5 mL 10 ml PO once Route: PO; km8 22:53 Follow up: Response: No adverse reaction la4 Medication: 22:30 VIS not applicable for this client. la4 Intake: 21:00 IV: 1000ml; Total: 1000ml. la4 21:15 IV: 100ml; Total: 1100ml. la4 Outcome: 22:07 Decision to Hospitalize by Provider. sp4 22:31 Admitted to Med/surg accompanied by tech, via stretcher, with chart, Report called to florencia Lopez 22:31 Condition: stable 22:31 Instructed on the need for admit, 23:21 Patient left the ED. 8 Signatures: Dispatcher [employer] EDMS Ernie Sanchez MD MD rn Martinez, Eric emCinthia Medel RN RN mb9 Jose Luis Hernandez MD MD sp4 Norma Gudino RN RN cm10 Wendy Bowens RN RN km8 Christopher Justice RN RN la4 Corrections: (The following items were deleted from the chart) 21:32 21:32 Piperacillin-Tazobactam IVPB 3.375 grams IVPB in right antecubital over 60 mins la4 la4
--- NOTE | 2023-02-02 22:19 | RAD REPORT ---
EXAM DESCRIPTION: US - Liver Only - 02/02/2023 9:12 pm CLINICAL HISTORY: acute hepatitis COMPARISON: BREAST/AXILLA, LIMITED dated 04/15/2014 TECHNIQUE: Sonographic grayscale and color flow images of the upper abdomen were obtained. FINDINGS: Liver demonstrates homogeneous echotexture and mildly increased echogenicity. No focal les ions. Hepatopetal flow appreciated in the main portal vein. The liver demonstrates no findings of intrahepatic biliary dilatation. Spleen is normal in size, measuring 8.2 centimeter in long axis. IMPRESSION: Mild diffuse hepatic steatosis. Otherwise normal sonographic evaluation of the liver and spleen.
[2023-02-02] MEDS ORDERED: IPRATROPIUM BROM 0.5MG/2.5ML ONE (22:44)
[2023-02-02] MEDS ORDERED: ALBUTEROL 2.5 MG/3 ML NEB SOL ONE (22:44)
[2023-02-02] MEDS ORDERED: guaiFENesin 100 MG/5 ML UCUP ONE (22:44)
[2023-02-02 23:48] VITALS: BMI 35.2
[2023-02-03] MEDS: IPRATROPIUM BROM 0.5MG/2.5ML NEB SCH ×3 (02:00→14:00)
[2023-02-03 03:02] LABS: Absolute Lymphocytes (CBC) 2.1 K/uL (0.7-4.9); Hematocrit 27.7 % (36.0-45.0); Lymphocytes % 15.7 % (15.3-44.8); MCV 85.5 fL (80-100); MPV 6.8 fL (7.6-11.3); Platelets 234 thou/uL (152-406); RBC Red Blood Cell Count 3.25 M/uL (3.86-4.86)
[2023-02-03] MEDS: AZITHROMYCIN IV 500 MG in NA CHLORIDE 0.9% 250 ML IVPB SCH ×2 (03:17→08:50)
[2023-02-03 03:23] LABS: Albumin 2.5 g/dL (3.4-5.0); Bilirubin Total 0.5 mg/dL (0.2-1.0); Potassium 3.1 mEq/L (3.5-5.1); Protein, Total 5.6 g/dL (6.4-8.2)
[2023-02-03 04:28] LABS: Hepatitis B Core IgM Nonreactive (Nonreactive); Hepatitis B surface AG Interp. Nonreactive (Nonreactive); Hepatitis C Virus Ab Nonreactive (Nonreactive)
[2023-02-03] MEDS: INSULIN REGULAR (HUMAN) 100 UNIT/ML SQ SCH ×2 (08:50→11:29)
[2023-02-03] MEDS: NA CHLORIDE 0.9% 1,000 ML IV SCH (08:51)
--- NOTE | 2023-02-03 08:52 | P.PN ---
Subjective Date of Service: 02/03/23 Chief Complaint: Fever / Cough Subjective: Doing well HPI 02/02: Augusta Thrasher is 67 yrs old Female with past medical history of hypertension, diabetes, hyperlipidemia presents to ER with complaints of Body aches, Fever, Cough. Which has been going on for the last 3 4 days and has been progressively worsening and was brought to ER. Patient had fever of 101+ associated with chills and cough Cough is productive with mucoid expectoration. Fevers intermittent. Fever got worsened today not better with OTC medications. Patient also complains of some sore throat. No shortness of breath or chest pain. Has generalized body pain and myalgia. Has a sick contact with a granddaughter who had flu last week. No nausea vomiting or diarrhea. Patient was assessed in the ER and still found to have fever and cough and possible pneumonia/lung mass and was started on sepsis protocol and was admitted for further management. 02/03: Augusta is awake in bed, conversing well. States she is having sinus pressure and felt like she was reacting to seasonal. She is not coughing or having chest congestion. We will continue to treat the PNA. Low grade fever of 99.5, on RA, tolerating diet and IV antibiotics. Review of Systems ENT: Other (Sinus pressure) Physical Examination - Vital Signs Temperature: 97.1 F Blood Pressure: 100/55 Pulse: 84 Respirations: 16 Pulse Ox (%): 98 - Studies Laboratory Data (last 24 hrs) 02/02/23 02/02/23 02/02/23 18:55 18:55 18:55 WBC 18.80 H Hgb 11.5 L Hct 34.4 L Plt Count 317 PT 10.5 INR 0.95 APTT 30.8 Sodium 131 L Potassium 3.7 BUN 32 H Creatinine 1.71 H Glucose 291 H Total Bilirubin 0.3 AST 101 H ALT 105 H Alkaline Phosphatase 223 H Microbiology Data (last 24 hrs): 02/02/23 19:20 Nasopharnyx Influenza Type A Antigen Screen - Final 02/02/23 19:20 Nasopharnyx Influenza Type B Antigen Screen - Final 02/02/23 19:20 Throat Group A Streptococcus Rapid Screen - Final Assessment And Plan - Plan Physical Exam General: Alert, In no apparent distress, Oriented x3, Mild distress HEENT: Atraumatic, Normocephalic Neck: Supple, 2+ carotid pulse no bruit, No Thyromegaly Respiratory: Normal air movement, Crackles/rales, Rhonchi/gurgles Cardiovascular: Normal pulses, Regular rate/rhythm, Normal S1 S2 Capillary refill: <2 Seconds Gastrointestinal: Soft and benign, Non-distended, W/out hepatosplenomegaly Musculoskeletal: No clubbing, No swelling Integumentary: No rashes, No breakdown Neurological: Normal strength at 5/5 x4 extr, Cranial nerves 3-12 intact, Normal reflexes 2+, Normal affect Lymphatics: No axilla or inguinal lymphadenopathy Assessment and Plan Sepsis with unknown source likely due to pneumonia /URI Tylenol as needed for fever IV antibiotics started We will obtain cultures IV hydration Elevated CRP found CT chest abdomen pelvis noted Flu test negative Monitor closely on telemetry Pneumonia Possibly pneumonia right upper lobe Irregular mass noted CT findings noted We will consult pulmonology Continue antibiotics with Zosyn and Zithromax to cover for atypical Will obtain sputum culture A repeat x-ray chest in a.m. Lung mass CT findings noted Lung mass with mediastinal lymphadenopathy noted No previous history of lung mass Non-smoker No history of weight loss, night sweats Pulmonology consulted Patient may need a bronchoscopy for possible biopsy Elevated LFTs Heapatic Steatosis LFTs trended Ultrasound findings Mild diffuse hepatic steatosis. Hepatitis panel pending Monitor LFTs in a.m. Diabetes Insulin sliding scale Accu-Chek before every meal and at bedtime May need an A1c in a.m. Hypertension Continue home medications losartan Antihypertensives titrated Hyperlipidemia Continue statin Discharge Plan: Home LOS 2 days DVT ppx Discharge Plan: Home Plan to discharge in: 48 Hours Physician Review: Patient Assessed, Agree with Above Assessment and Plan Time Spent Managing PTS Care (In Minutes): 35
[2023-02-03] MEDS ORDERED: PIPER TAZO 3.375 GM in NA CHLORIDE 0.9% 100 ML IV SCH (09:00)
[2023-02-03] MEDS ORDERED: ENOXAPARIN 30 MG/0.3 ML SQ SCH (09:00)
[2023-02-03] MEDS ORDERED: LOSARTAN POTASSIUM 50 MG TABLET PO SCH (09:00)
[2023-02-03 11:55] VITALS: BP 119/71; TEMP 97.7
--- NOTE | 2023-02-03 12:13 | P.CNS ---
Date of Consult: 02/03/23 Chief Complaint: Fever / Cough History of Present Illness: Patient is 67 years of age previously healthy no history of cardiopulmonary problems 2 weeks ago while mowing the lawn she started coughing hacking began yesterday patient developed some chills and it appeared in the hospital found to have a right upper lobe mass with some adenopathy denies any hemoptysis no prior history of tobacco abuse or malignancy he is feeling better Allergies codeine Allergy (Verified 06/22/14 18:17) Itching No Known Drug Allergies Allergy (Verified 02/02/23 23:51) Unknown Home Medications: Atorvastatin Calcium [Lipitor] 10 mg PO BEDTIME 02/03/23 Empagliflozin [Jardiance] 25 mg PO DAILY 02/03/23 Losartan Potassium 50 mg PO DAILY 02/03/23 Metformin HCl 500 mg PO DAILY 02/03/23 Naproxen Sodium [Naprelan] 500 mg PO DAILY 02/03/23 - Past Medical/Surgical History Diabetic: No -: hypertension -: Diabetes -: tubal ligation -: hysterectomy -: tummy tuck -: shoulder surgery -: lap band -: knee surgery -: eye surgery -: thigh lift surgery - Family History Father Medical History: Diabetes Brother Medical History: Cancer - Social History Alcohol use: Yes CD- Drugs: No Caffeine use: Yes Place of Residence: Home Review of Systems 10-point ROS is otherwise unremarkable Physical Examination Temp Pulse Resp BP Pulse Ox 97.7 F 90 17 119/71 98 02/03/23 11:53 02/03/23 11:53 02/03/23 11:53 02/03/23 11:53 02/03/23 11:53 General: Alert, In no apparent distress, Oriented x3 HEENT: Atraumatic Neck: Supple Respiratory: Clear to auscultation bilaterally Cardiovascular: No edema, Regular rate/rhythm, Normal S1 S2 Gastrointestinal: Normal bowel sounds, Soft and benign Musculoskeletal: No clubbing Integumentary: No rashes, No breakdown Laboratory Data (last 24 hrs) 02/02/23 02/02/23 02/02/23 18:55 18:55 18:55 WBC 18.80 H Hgb 11.5 L Hct 34.4 L Plt Count 317 PT 10.5 INR 0.95 APTT 30.8 Sodium 131 L Potassium 3.7 BUN 32 H Creatinine 1.71 H Glucose 291 H Total Bilirubin 0.3 AST 101 H ALT 105 H Alkaline Phosphatase 223 H - Problems (1) Abnormal CT scan of lung Current Visit: Yes Status: Acute Plan: Patient is 67 years of age admitted with a 3-week history of cough congestion developed fever and chills and was admitted with multiorgan dysfunction including abnormal liver function test abnormal kidney function he is a feeling better hemodynamically stable vital signs oxygenation stable patient can be discharged home on either Augmentin cefuroxime and Zithromax or levofloxacin most likely she has a right upper lobe pneumonia Pneumonia is not visible on chest x-ray is in the right upper lobe posterior segment adjacent to the alicja in the paravertebral spinal region No risk for lung cancer follow-up with me in 2 weeks and I will repeat a follow- up CT scan and lab work encourage encourage fluid intake
[2023-02-03 14:22] VITALS: O2SAT 96
[2023-02-03] MEDS ORDERED: POTASSIUM CL SA 10 MEQ TAB PO ONE (14:31)
--- NOTE | 2023-02-03 14:44 | P.DS ---
Admission Date: 02/02/23 Discharge Date: 02/03/23 Disposition: ROUTINE DISCHARGE Discharge Condition: FAIR Reason for Admission: Fever / Cough - Problems (1) Pneumonia Current Visit: Yes Status: Acute (2) Sepsis Current Visit: Yes Status: Acute (3) Diabetes Current Visit: Yes Status: Chronic Brief History of Present Illness: 67 yrs old Female with past medical history of hypertension, diabetes, hyperlipidemia presents to ER with complaints of Body aches, Fever, Cough. Which has been going on for the last 3 4 days and has been progressively worsening and was brought to ER. Patient had fever of 101+ associated with chills and cough Cough productive with mucoid expectoration. Fevers intermittent. Fever got worsened today not better with OTC medications. Patient also complains of some sore throat. No shortness of breath or chest pain. Has generalized body pain and myalgia. Has a sick contact with a granddaughter who had flu last week. No nausea vomiting or diarrhea. Patient was assessed in the ER and still found to have fever and cough and possible pneumonia/lung mass and was started on sepsis protocol and was admitted for further management. Hospital Course: Patient admitted to the medical floor and treated with antibiotics, bronchodilators and supportive measures including IV fluid. Patient was not hypoxic on room air. She tolerated diet and she is ambulatory. She was seen and evaluated by pulmonary Dr. Grigsby who suspected lung mass most likely an infiltrate rather than a mass and recommended follow-up with him in the office within a couple of weeks. Patient has been afebrile with stable vitals. Leukocytosis significantly improved. Patient is discharged with oral antibiotics. Vital Signs/Physical Exam: Temp Pulse Resp BP Pulse Ox 97.7 F 90 17 119/71 98 02/03/23 11:53 02/03/23 11:53 02/03/23 11:53 02/03/23 11:53 02/03/23 11:53 Laboratory Data at Discharge: WBC 13.40 thou/uL (4.3-10.9) H 02/03/23 02:34 Hgb 9.2 g/dL (12.0-15.0) L D 02/03/23 02:34 Hct 27.7 % (36.0-45.0) L 02/03/23 02:34 Plt Count 234 thou/uL (152-406) D 02/03/23 02:34 PT 10.5 SECONDS (9.5-12.5) 02/02/23 18:55 INR 0.95 02/02/23 18:55 APTT 30.8 SECONDS (24.3-36.9) 02/02/23 18:55 Sodium 138 mEq/L (136-145) D 02/03/23 02:34 Potassium 3.1 mEq/L (3.5-5.1) L D 02/03/23 02:34 BUN 28 mg/dL (7-18) H 02/03/23 02:34 Creatinine 1.56 mg/dL (0.55-1.02) H 02/03/23 02:34 Glucose 201 mg/dL (74-106) H 02/03/23 02:34 Total Bilirubin 0.5 mg/dL (0.2-1.0) 02/03/23 02:34 AST 141 U/L (15-37) H 02/03/23 02:34 ALT 135 U/L (13-56) H 02/03/23 02:34 Alkaline Phosphatase 170 U/L (45-117) H D 02/03/23 02:34 Home Medications: Atorvastatin Calcium [Lipitor*] 10 mg PO BEDTIME 02/03/23 Empagliflozin [Jardiance] 25 mg PO DAILY 02/03/23 Losartan Potassium 50 mg PO DAILY 02/03/23 Metformin HCl 500 mg PO DAILY 02/03/23 Naproxen Sodium [Naprelan] 500 mg PO DAILY 02/03/23 levoFLOXacin [Levaquin] 750 mg PO DAILY #10 tab 02/03/23 New Medications: levoFLOXacin [Levaquin] 750 mg PO DAILY #10 tab Diet: ADA Activity: Ad valdez Followup: Krishna Grigsby MD [ACTIVE - CAN ADMIT] - 1-2 Weeks Alejandra Whitfield NP [Primary Care Provider] - Time spent managing pt's care (in minutes): 28
[2023-02-03] MEDS ORDERED: ALBUTEROL 2.5 MG/3 ML NEB SOL NEB PRN (15:00)
[2023-02-03] MEDS ORDERED: ATORVASTATIN 10 MG TAB PO SCH (21:00)
== END 2023-02-03 15:40 | disposition home or self-care (01) | DRG 871 ==
LOC: ER 17:41 → ERHOLD 21:49 → 2ND 23:08
PROVIDERS: ADMIT Family Medicine; ATTEND Internal Medicine
DX: A41.9 Sepsis, unspecified organism (principal); J18.9 Pneumonia, unspecified organism; B17.9 Acute viral hepatitis, unspecified; R65.20 Severe sepsis without septic shock; I10 Essential (primary) hypertension; E11.9 Type 2 diabetes mellitus without complications; E78.5 Hyperlipidemia, unspecified; K76.0 Fatty (change of) liver, not elsewhere classified; R91.8 Other nonspecific abnormal finding of lung field; R59.1 Generalized enlarged lymph nodes; R79.89 Other specified abnormal findings of blood chemistry; R74.01 Elevation of levels of liver transaminase levels; Z88.5 Allergy status to narcotic agent; Z98.51 Tubal ligation status; Z11.52 Encounter for screening for COVID-19; Z79.84 Long term (current) use of oral hypoglycemic drugs; Z79.899 Other long term (current) drug therapy; Z90.710 Acquired absence of both cervix and uterus
CPT/HCPCS: 36415; 71045; 71250; 74176; 76705; 80053; 80074; 82947; 83605; 84145; 85025; 85610; 85730; 86140; 87040; 87070; 87081; 87804; 93005; 94760; 96361; 96365; 96375; 99285; J1650; J1815; J2543; J7030; J7050; J7613; J7644